=== PATIENT | male | born 1960 | race Caucasian/White ===

== ENCOUNTER 2024-08-21 17:21 | Emergency (ER) | payer BC, SELFPAY ==
[2024-08-21 17:24] VITALS: BP 219/133
--- NOTE | 2024-08-21 18:36 | ED.GENMED ---
History of Present Illness
General
Chief Complaint: Foreign Body Removal
Source: patient
Exam Limitations: none
Time Seen by Provider: 08/21/24 17:53
History of Present Illness
History of Present Illness:
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 He saw a wound care doctor who explored the wound however the
patient was unable to tolerate the discomfort. He also saw an urgent care and x-rays were taken that were negative. [place] then [place] [facility] [place]. He complains of significant pain now to the plantar surface of
his foot even to light touch.
Phy Exam
Physical Exam
Physical Exam:
General: Well-appearing male in no acute distress
HEENT: NC/AT
Skin: Plantar surface of left foot examined with a raised area tender area, foreign body noted in skin.
Course
Vital Signs
Initial and Last Documented VS:
Initial Vital Signs
Temp Pulse Resp BP Pulse Ox
98.7 F 91 20 219/133 98
08/21/24 17:24 08/21/24 17:24 08/21/24 17:24 08/21/24 17:24 08/21/24 17:24
Last Documented Vital Signs
Temp Pulse Resp BP Pulse Ox
98.7 F 91 20 219/133 98
08/21/24 17:24 08/21/24 17:24 08/21/24 17:24 08/21/24 17:24 08/21/24 17:24
MDM/Problems Addressed
Differential Diagnosis Includes:
Foreign body left plantar foot. The area was anesthetized with 1% lidocaine with epinephrine. The area of concern was then irrigated and multiple pieces of either sand or small pieces of the glass were removed from the plantar surface of the foot
using forceps. The area was then irrigated again and an incision was made over the area of concern. There was no further palpable or visible foreign bodies in the area. Dressing applied. he follows with wound care tomorrow
*Pulse Oximetry
SaO2: 98
Oxygen Mode of Delivery: Room air
Patient hypoxic: no
*Critical Care Note
Total Time (30-74mins, 75-104mins- exclusive of procedures): Not Applicable
ED Attending Note
-
Portions of this chart may have been created with voice recognition software.� Occasional wrong word or��sound alike� substitutions may have occurred due to the inherent limitations of voice recognition software.
Discharge Plan
Departure
Patient Disposition: Home (Routine Discharge)
Date of Disposition: 08/21/24
Time of Disposition: 18:44
Patient with high blood pressure during this ER visit?: Yes
Discharge Problem:
Foreign body (FB) in soft tissue
Instructions: Foreign Body in Skin (DC)
Activity Restrictions/Additional Instructions:
Keep clean. Follow-up with wound care as planned. Return here if needed otherwise
Interventions
Interventions:
*General Assessment Last Done: 08/21/24 17:24
*Neglect/Abuse Screening Last Done: 08/21/24 18:00
Discharge Date and Time
Print Language: DANISH
[2024-08-21 18:51] VITALS: BP 151/95
== END 2024-08-21 18:54 | disposition home or self-care (01) ==
LOC: EMR 17:21
PROVIDERS: EMERGENCY PHYSICIAN Emergency Medicine; FAMILY PHYSICIAN Internal Medicine
DX: M79.5 Residual foreign body in soft tissue (principal); G62.9 Polyneuropathy, unspecified; Z85.038 Personal history of other malignant neoplasm of large intestine
CPT/HCPCS: 10120; 99282

== ENCOUNTER 2024-10-22 11:00 | Emergency (ER) | payer BC, SELFPAY ==
[2024-10-22 11:06] VITALS: BP 167/114
--- NOTE | 2024-10-22 15:21 | ED.GENMED ---
History of Present Illness
General
Chief Complaint: Wound Check/Suture Removal
Time Seen by Provider: 10/22/24 15:09
History of Present Illness
History of Present Illness:
64-year-old male presents to the emergency department for evaluation of numerous nonhealing wounds to the bilateral lower extremities. He is under the care of marketing specialist at [facility]. He is concerned predominantly for a wound to
the posterior right leg as it is newly opened and painful more so than the rest. Denies any fevers or chills.
Review of Systems
Review of Systems
Allergies reviewed?: Yes
All Other Systems: ROS reviewed and negative except as documented in HPI and ROS
Phy Exam
Physical Exam
Physical Exam:
GEN: Well appearing, NAD, WDWN
HEENT: Oral mucosa moist, no scleral icterus
Cardiac: Regular rate
Lung: No respiratory distress, no tachypnea
MSK: No gross deformity or injuries
Skin: Good color, no pallor or jaundice, no rashes. Numerous superficial ulcerations to bilateral lower extremities, most notably there is a 1 x 1 cm circular ulceration with mild surrounding erythema to the right posterior calf, no discharge
Neuro: AO x3, moves all extremities freely
Psych: Calm, cooperative
Sepsis
Sepsis Screening
Sepsis Assessment: Sepsis Ruled Out
Sepsis Screen
Sepsis Screen: Sepsis Ruled Out
Date: 10/22/24
Time: 19:32
Course
Orders/Labs/Results
Orders:
Orders
10/22/24 15:24
Collagenase [Santyl Ointment] See Dose Instructions TOPICAL NOW STA
Vital Signs
Initial and Last Documented VS:
Initial Vital Signs
Temp Pulse Resp BP Pulse Ox
97.6 F 84 18 167/114 98
10/22/24 11:06 10/22/24 11:06 10/22/24 11:06 10/22/24 11:06 10/22/24 11:06
Last Documented Vital Signs
Temp Pulse Resp BP Pulse Ox
97.6 F 84 18 167/114 98
10/22/24 11:06 10/22/24 11:06 10/22/24 11:06 10/22/24 11:06 10/22/24 15:23
MDM/Problems Addressed
MDM/Problems Addressed:
Patient is clinically well, advised to follow-up with marketing specialist for further local measures however we will start him on empiric antibiotics given the new tender wound
*Pulse Oximetry
SaO2: 98
Oxygen Mode of Delivery: Room air
Patient hypoxic: no
*Critical Care Note
Total Time (30-74mins, 75-104mins- exclusive of procedures): Not Applicable
ED Attending Note
-
Portions of this chart may have been created with voice recognition software.� Occasional wrong word or��sound alike� substitutions may have occurred due to the inherent limitations of voice recognition software.
Discharge Plan
Departure
Patient Disposition: Home (Routine Discharge)
Date of Disposition: 10/22/24
Time of Disposition: 15:23
Patient with high blood pressure during this ER visit?: No
Discharge Problem:
Wound of right leg
Instructions: Wound Care (DC)
Prescriptions:
New
cephalexin 500 mg capsule
500 mg PO Q6H 5 Days Qty: 20 0RF
Referrals:
UNKNOWN - PT DOES,NOT KNOW [Family Provider]
Interventions
Interventions:
*Risk Screen - Suicide Last Done: 10/22/24 11:06
*General Assessment Last Done: 10/22/24 15:40
*Neglect/Abuse Screening Last Done: 10/22/24 15:40
*ED- Fall Risk Assessment Last Done: 10/22/24 15:40
*ED COVID-19 Vaccine History Last Done: 10/22/24 15:40
*Nursing Disposition Last Done: 10/22/24 15:58
ED-Skin Assessment Last Done: 10/22/24 15:51
Discharge Date and Time
Discharge Date/Time: 10/22/24 15:59
Print Language: IRISH
--- NOTE | 2024-10-22 15:30 | EDRN ---
Called [facility] for optifoam dressings 4x4 size x6 and asked 4th floor E if they could send some as pt is discharged. Calling pharmacy now for Santyl which is in [place].
[2024-10-22 15:40] VITALS: BMI 41.9
[2024-10-22] MEDS: SANTYL OINTMENT 1 APPLIC TOPICAL (15:49)
--- NOTE | 2024-10-22 15:57 | EDRN ---
all six wound areas cleansed w/ saline, dressed w/ Santyl and optifoam gentler 4x4's.
== END 2024-10-22 15:59 | disposition home or self-care (01) ==
LOC: EMR 11:00
PROVIDERS: EMERGENCY PHYSICIAN Emergency Medicine
DX: S81.801A Unspecified open wound, right lower leg, initial encounter (principal); X58.XXXA Exposure to other specified factors, initial encounter
CPT/HCPCS: 99282